=== PATIENT | female | born 1975 | race Caucasian/White ===

== ENCOUNTER → 2020-07-16 08:25 | Outpatient (CLI) | payer BC, SELFPAY ==
--- NOTE | ~2020-07-16 | MM_ITS ---
EXAMINATION: MM screening dorita BI w debby HISTORY: Screening TECHNIQUE: Craniocaudal and mediolateral oblique 3-D tomosynthesis images were obtained and synthetic 2-D images were generated. CAD analysis was submitted and interpreted. COMPARISON: No prior mammogram is available for comparison at this institution. BREAST PARENCHYMAL COMPOSITION: The breasts are heterogeneously dense, which may obscure small masses . FINDINGS: There is no evidence of suspicious mass, calcification, or architectural distortion to sugg est malignancy in either breast. There has been no suspicious interval change. IMPRESSION: 1. No mammographic evidence of malignancy. 2. Recommend routine screening mammography in one year. BI-RADS Category 1: Negative Reviewed, dictated and finalized at location A.
== END ==
PROVIDERS: PCP Internal Medicine; Visit Provider Student in an Organized Health Care Education/Training Program
DX: Z12.31 Encounter for screening mammogram for malignant neoplasm of breast (principal)
CPT/HCPCS: 77063; 77067

== ENCOUNTER → 2021-09-08 08:49 | Outpatient (CLI) | payer BC, SELFPAY ==
[2021-09-08 15:55] LABS: SARS-CoV-2 RNA PCR Positive
== END ==
PROVIDERS: PCP Internal Medicine; Visit Provider Physician Assistant
DX: U07.1 COVID-19 (principal)
CPT/HCPCS: C9803; U0003; U0005

== ENCOUNTER → 2021-11-02 16:33 | Outpatient (CLI) | payer BC, SELFPAY ==
--- NOTE | ~2021-11-02 | MM_ITS ---
EXAMINATION: MM screening dorita BI w debby HISTORY: Screening TECHNIQUE: Craniocaudal and mediolateral oblique 3-D tomosynthesis images were obtained and synthetic 2-D images were generated. CAD analysis was submitted and interpreted. COMPARISON: 07/16/2020 BREAST PARENCHYMAL COMPOSITION: The breasts are heterogenously dense, which may obscure small masses FINDINGS: There is no evidence of suspicious mass, calcification, or architectural distortion to sugg est malignancy in either breast. There has been no suspicious interval change. IMPRESSION: 1. No mammographic evidence of malignancy. 2. Recommend routine screening mammography in one year. BI-RADS Category 1: Negative Reviewed, dictated and finalized at location A.
== END ==
PROVIDERS: PCP Internal Medicine; Visit Provider Student in an Organized Health Care Education/Training Program
DX: Z12.31 Encounter for screening mammogram for malignant neoplasm of breast (principal)
CPT/HCPCS: 77063; 77067

== ENCOUNTER → 2023-01-24 16:20 | Outpatient (CLI) | payer OTHER, SELFPAY ==
--- NOTE | ~2023-01-24 | MM_ITS ---
EXAMINATION: MM screening dorita BI w debby HISTORY: Screening TECHNIQUE: Craniocaudal and mediolateral oblique 3-D tomosynthesis images were obtained and synthetic 2-D images were generated. CAD analysis was submitted and interpreted. COMPARISON: Comparison to multiple prior studies sequentially, with oldest reviewed study dated 07/16. BREAST PARENCHYMAL COMPOSITION: The breasts are heterogeneously dense, which may obscure small masses FINDINGS: There are developing asymmetries in the upper outer quadrant of the left breast, middle thi rd. The right breast is stable without evidence for malignancy. IMPRESSION: 1. Developing left breast asymmetries. 2. Additional mammographic views and possible breast ultrasound are recommended. BI-RADS Category 0: Incomplete: Needs additional imaging evaluation. Reviewed, dictated and finalized at location A. IMPRESSION: 1. Developing left breast asymmetries. 2. Additional mammographic views and possible breast ultrasound are recommended . BI-RADS Category 0: Incomplete: Needs additional imaging evaluation.
== END ==
PROVIDERS: PCP Internal Medicine; Visit Provider Registered Nurse
DX: Z12.31 Encounter for screening mammogram for malignant neoplasm of breast (principal); R92.8 Other abnormal and inconclusive findings on diagnostic imaging of breast
CPT/HCPCS: 77063; 77067

== ENCOUNTER → 2023-02-15 08:18 | Outpatient (CLI) | payer OTHER, SELFPAY ==
--- NOTE | ~2023-02-15 | MMUS_ITS ---
EXAMINATION: MM diagnostic dorita LT w debby, US breast LT limited HISTORY: Developing left mammographic asymmetry is reported in the upper outer quadrant of the left b reast, middle third on 01/24/2023 screening mammogram TECHNIQUE: Additional 3-D tomosynthesis images of the left breast were performed and synthetic 2-D im ages were generated. CAD analysis was submitted and interpreted. High resolution upper outer and lowe r-outer quadrant left breast ultrasound was performed. COMPARISON: 01/24/2023 bilateral screening mammogram FINDINGS: MAMMOGRAPHIC FINDINGS: No suspicious reproducible mass, architectural distortion, malignant calcification, skin thickening o r retraction is detected. ULTRASOUND: No suspicious mass or shadowing, cyst or other sylvian sonographic abnormality of the upper outer or lower outer quadrants left breast is detected. IMPRESSION: 1. No mammographic or sonographic evidence of malignancy 2. Routine annual mammographic screening is recommended BI-RADS Category 1: Negative Reviewed, dictated and finalized at location A. IMPRESSION: 1. No mammographic or sonographic evidence of malignancy 2. Routine annual mammographic screening is recommended BI-RADS Category 1: Negative
== END ==
PROVIDERS: PCP Internal Medicine; Visit Provider Registered Nurse
DX: R92.8 Other abnormal and inconclusive findings on diagnostic imaging of breast (principal)
CPT/HCPCS: 76642; 77061; 77065; G0279

== ENCOUNTER 2024-01-28 16:26 | Outpatient (CLI) | payer OTHER, SELFPAY ==
--- NOTE | ~2024-01-28 | MM_ITS ---
EXAMINATION: MM screening dorita BI w debby HISTORY: Screening TECHNIQUE: Craniocaudal and mediolateral oblique 3-D tomosynthesis images were obtained and synthetic 2-D images were generated. CAD analysis was submitted and interpreted. COMPARISON: Comparison to multiple prior studies sequentially, with oldest reviewed study dated 07/16. BREAST PARENCHYMAL COMPOSITION: Dense: The breasts are heterogeneously dense, which may obscure small masses FINDINGS: There is no evidence of suspicious mass, calcification, or architectural distortion to sugg est malignancy in either breast. There has been no suspicious interval change. IMPRESSION: 1. No mammographic evidence of malignancy. 2. Recommend routine screening mammography in one year. BI-RADS Category 1: Negative Reviewed, dictated and finalized at location B.
== END 2024-01-28 16:27 | disposition home or self-care (01) ==
PROVIDERS: PCP Internal Medicine; Visit Provider Nurse Practitioner Family
DX: Z12.31 Encounter for screening mammogram for malignant neoplasm of breast (principal)
CPT/HCPCS: 77063; 77067

== ENCOUNTER 2024-05-03 17:44 | Emergency (ER) | payer OTHER, SELFPAY ==
[2024-05-03 17:55] VITALS: BP 146/99; PULSE 84; RESP 16; TEMP 36.3; O2SAT 99
--- NOTE | 2024-05-03 18:09 | ED_ITS ---
HPI - URI/Sore Throat General Chief Complaint: Upper Respiratory Infection Stated Complaint: sorthroat Time Seen by Provider: 05/03/24 18:09 Source: patient, RN notes reviewed and old records reviewed Mode of arrival: ambulatory Limitations: no limitations History of Present Illness HPI Narrative: Patient presents accompanied by her 2 was just diagnosed with atypical pneumonia. She reports that she has had a sore throat for a couple of days. She reports associated body aches. She is unsure fever status. She has been taking [id number] medication for her symptoms with minimal relief. She states that other than the sore throat she does not feel all that bad. She denies any difficulty swallowing, although she does admit this makes her throat hurt worse. Related Data Allergies Allergy/AdvReac Type Severity Reaction Status Date / Time No Known Allergies Allergy Verified 05/03/24 17:47 Review of Systems Review of Systems: All systems reviewed & are unremarkable except as noted in HPI and below Constitutional: Constitutional: Reports no additional constitutional complaints and Reports body ache(s) ENT: Reports system reviewed and no additional complaints, except as documented and Reports sore throat Cardiovascular: Cardiovascular: Reports no additional cardiovascular complaints Respiratory: Respiratory: Reports no additional respiratory complaints Gastrointestinal: Gastrointestinal: Reports no additional gastrointestinal complaints [facility] Past Medical History Medical History (Reviewed 10/07/23 @ 15:08 by Tiffani Soler [facility]) History of DVT in adulthood Hypertension Family History Family History Father Family history of gout Blood clot in vein Diabetes mellitus Hypertension Hyperlipidemia Mother Hypertension Social History Social History Smoking status: Never smoker Second hand tobacco smoke exposure: No Alcohol intake: current Drinks per week: 14 Substance use: never Comments At the time of my signature, I reviewed and agree with the nursing past medical, surgical, social, and family history. There is no relevant family history pertinent to the patient complaint. Exam Const: General: cooperative, no acute distress, alert and awake Orientation/consciousness: oriented to person, oriented to place and oriented to time HENMT: Head: normal to inspection Ears: TM's normal bilaterally Mouth: Yes moist mucous membranes Resp: Effort & Inspection: normal respiratory effort and able to speak in complete sentences Auscultation: clear to auscultation bilaterally, no crackles, no rales, no rhonchi and no wheezes Cardio: Palpation: normal PMI Rate: regular rate Rhythm: regular rhythm Heart sounds: S1 normal heart sound present and S2 normal heart sound present Neuro: General: oriented to person, oriented to place and oriented to time Cranial nerves: Yes CN's II-XII intact bilaterally Psych: Appearance: grossly normal Thought process: Normal thought process present Insight: Good insight present (Psych) Judgement: Good judgement present (Psych) Course Course Level of Care: Express Care Visit Vital Signs Vital signs: Vital Signs Temperature 97.4 F L 05/03/24 17:55 Pulse Rate 84 05/03/24 17:55 Respiratory Rate 16 05/03/24 17:55 Blood Pressure 146/99 H 05/03/24 17:55 Pulse Oximetry 99 05/03/24 17:55 Oxygen Delivery Room Air 05/03/24 17:55 Temperature 97.4 F L 05/03/24 17:55 Pulse Rate 84 05/03/24 17:55 Respiratory Rate 16 05/03/24 17:55 Blood Pressure 146/99 H 05/03/24 17:55 Pulse Oximetry 99 05/03/24 17:55 Oxygen Delivery Room Air 05/03/24 17:55 Reviewed MDM - URI/Sore Throat MDM Narrative Medical decision making narrative: Negative rapid strep, culture pending. Patient's is here with her, he was just diagnosed with atypical pneumonia. Will treat patient as well per recommendations Discharge instructions reviewed with patient, as well as provided in writing per nursing staff. The instructions also include specific and strict return/GO TO THE ER as well as f/u information. All questions have been answered, and the patient deny any further questions with discharge and discharge plan. Some parts of this dictation were generated by voice recognition software and may contain typographical and/or grammatical inaccuracies. Differential Diagnosis Differential diagnosis: Likely upper respiratory infection, otitis media, sinusitis, viral infection, influenza and pharyngitis Medical Records Attestation: I reviewed the patient's medical records. Lab Data Attestation: I reviewed the patient's lab results. Discharge Plan Discharge Clinical Impression: Acute sore throat Patient Disposition: Home, Self-Care Condition: Stable Instructions: Antibiotic Form, Cold Symptoms (ED) Patient Language: Portuguese Prescriptions: New azithromycin 250 mg tablet See Rx Instructions .ROUTE .COMPLEX Qty: 6 0RF Rx Instructions: For 250 mg dose pack: take 500 mg today (day 1), then 250 mg for 4 days (days 2-5) No Action lisinopril 20 mg tablet 20 mg PO DAILY Qty: 90 2RF Follow-up/Referrals: Bryon,Jordan Dick DO [Primary Care Provider] - 2 Weeks Time of Disposition: 18:31
[2024-05-03 18:12] LABS: EDSTREPNEGPOS1 Negative (Negative)
== END 2024-05-03 18:33 | disposition home or self-care (01) ==
PROVIDERS: Emergency Provider Nurse Practitioner Family; PCP Internal Medicine
DX: J02.9 Acute pharyngitis, unspecified (principal); I10 Essential (primary) hypertension
CPT/HCPCS: 87081; 87880; 99213; G0463

== ENCOUNTER 2024-12-18 06:55 | Day surgery (SDC) | payer OTHER, SELFPAY ==
[2024-12-03 10:36] VITALS: BMI 24.2
--- NOTE | 2024-12-04 10:52 | PC.NURSE ---
Patient complained about worrying about nausea and vomiting while doing prep, order placed with directions per Dr. Solis for Ondansetron 4 mg tablets q6h prn for nausea and vomiting with prep.
--- OUTSIDE RECORDS SUMMARY | 2024-12-18 06:57 | XMS_ITS | Clinical Summary ---
Author Organization [facility] [address] Address [address] [place] [address] Care Team Providers Care Machine Stripper Name Role Phone Jordan Slater MD Primary Care Provider [phone] Allergies No known active allergies Medications XARELTO 20 mg tablet TK 1 T PO QD WITH THE EDGAR MEAL 4 09/30/2018 Active lisinopril (PRINIVIL,ZESTRI L) 10 mg tablet TK 1 T PO QD 3 11/26/2018 Active Active Problems No known active problems Surgical History Surgery Date Site/Laterality Comments FOOT SURGERY CRANIAL LESION RESECTION Medical History Medical History Date Comments Clotting disorder Deep vein thrombosis (HCC) Hypertension Inflammatory bowel disease Migraines Family History Medical History Relation Name Comments Alcohol abuse Father Blood Clot Father Gout Father Hypertension Father Alcohol abuse Mother Hypertension Mother Relation Name Status Comments Father Mother Social History Tobacco Use Types Packs/Day Years Used Date Smoking Tobacco: Never Smokeless Tobacco: Never Alcohol Use Standard Drinks/Week Comments Yes 0 (1 standard drink = 0.6 oz pur e alcohol) Frequently Personal Safety Answer Date Recorded Getting School Help Needed Not on file 07/19 Comments Unknown Sex and Gender Information Value Date Recorded Sex Assigned at Not on file 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 Gender Identity Not on file Sexual Orientation Not on file Obstetrics History Last Filed Vital Signs Vital Sign Reading Time Taken Comments Blood Pressure - - Pulse - - Temperature - - Respiratory Rate - - Oxygen Saturation - - Inhaled Oxygen Concentration - - Weight 68 kg (150 lb) 10/14/2018 9:08 AM CDT Height 167.6 cm (5' 6) 10/14/2018 9:08 AM CDT Body Mass Index 24.21 10/14/2018 9:08 AM CDT Plan of Treatment Not on file Insurance [facility] H[facility] Address: [address] [address] [place] [address] [facility] H[facility]/POS Care Teams Machine Stripper Relationship Specialty Start Date End Date Jordan Slater MD [address] [facility] [address] [place] [address] PCP - General Internal Medicine 04/10/18
--- OUTSIDE RECORDS SUMMARY | 2024-12-18 06:57 | XMS_ITS | Patient Health Record ---
Author Organization [facility] Address [address] [place], [place] [id number] Care Team Providers Care Back Tender Insulation Board Name Role Phone MITZI KAPADIA Unavailable [phone] Jordan Slater Unavailable Unavailable Reason For Referral No Information Plan Of Treatment No Information Insurance Providers Payer Name Payer Address Payer Phone Subscriber Number Group Number Insured Name Patient Relationship to Insured Coverage Start Date Coverage End Date [employer] [address] [place] [address] [id number] LOR CORTES Self - patient is the insured
[2024-12-18 10:13] VITALS: BP 136/90; PULSE 76; RESP 18; TEMP 36.5; O2SAT 100; BMI 23.5
[2024-12-18] MEDS: LACTATED RINGERS 1,000 ML 150 ML IV CONT (10:23)
--- NOTE | 2024-12-18 11:01 | WPDANESEPPF ---
Anes - Initial Pre Proc Eval Procedure: Operation Date: 12/18/24 11:30 Proposed Procedures p Diagnostic Colonoscopy - Byron Solis MD Date/Time: 12/18/24 11:01 Surgeon: Byron Solis MD Pre Op Diagnosis: Other fecal abnormalities Patient Data Age: 49 Gender: F Height: 1.68 m Weight: 66.1 kg Last Vital Signs Temp 97.7 F 12/18/24 10:13 Pulse 76 12/18/24 10:13 Resp 18 12/18/24 10:13 BP 136/90 12/18/24 10:13 Pulse Ox 100 12/18/24 10:13 O2 Del Method Room Air 12/18/24 10:13 Allergies Allergy/AdvReac Type Severity Reaction Status Date / Time No Known Allergies Allergy Verified 12/18/24 10:12 Home Medications ?Medication ?Instructions ?Recorded ?Confirmed ?Type lisinopril 20 mg tablet 20 mg PO DAILY #90 tabs 11/13/24 12/18/24 Rx spironolactone 25 mg tablet 25 mg PO DAILY #30 tabs 11/13/24 12/18/24 Rx (Aldactone) magnesium 200 mg tablet 200 mg PO DAILY 12/03/24 12/18/24 History multivitamin (Daily Multi-Vitamin 1 tablet PO DAILY 12/03/24 12/18/24 History tablet) ondansetron HCl 4 mg tablet 4 mg PO Q6H PRN nausea and 12/04/24 Rx vomiting #4 tabs Patient hx anesthesia problems: none Family hx anesthesia problems: none Results Review: All pre-operative results and documents have been reviewed as part of the pre-operative evaluation. [facility] Past Medical History Medical History BMI 24.0-24.9, adult Palpitation Other fatigue Essential hypertension Elevated blood pressure reading History of DVT in adulthood Hypertension Surgical History Surgical History Hx of colonoscopy Family History Family History Father Family history of gout Blood clot in vein Diabetes mellitus Hypertension Hyperlipidemia Mother Hypertension Sibling Hypertension Social History Social History Smoking status: Never smoker Second hand tobacco smoke exposure: No Alcohol intake: current Drinks per week: 14 Substance use: never Substance use type: does not use Do You Feel Safe in your Home?: Yes Lack of Transportation: No Lack of Food: Never True Current Housing: I Have Housing Concerned About Future Housing: No Difficulty Paying Gas/Electric Bills: No Difficulty Paying for Meds: No Currently Unemployed: No Education: Bachelor's Degree Difficulty w/ Childcare or Family Care: No Living arrangements: with family Additional living arrangements comments: Department of [employer] Occupation/Education: occupation Anes - Eval Final PreProcedure Day of Procedure 12/18/24 11:01 Patient weight: normal Lungs: normal air movement Airway: Mallampati scale class II Neurological: alert and oriented Last oral intake: >/= 8 hours ASA classification: II Emergent: no Anesthetic plan: proceed Anesthesia type and monitoring: general GIVS and standard monitoring Results Review: All pre-operative results and documents have been reviewed as part of the pre-operative evaluation. HTN, hx of DVT after foot surgery in the past. Active, no cp or sob w activity. Informed Consent: The patient's anesthetic plan and its attendant risks and benefits were discussed with the patient/family/POA. Questions were solicited and answers provided to the satisfaction of the patient/family/POA.
--- NOTE | 2024-12-18 11:31 | P.HP_ITS ---
H&P: HPI History of Present Illness Date/Time: 12/18/24 11:31 Chief Complaint: Positive Cologuard test Narrative: This is the patient's 2nd colonoscopy after more than 5 years. She was recently found to have a Cologuard positive test.. There are no GI symptoms and there is no family history of colorectal cancer. Review of Systems Review of Systems: All systems reviewed & are unremarkable except as noted in HPI and below PMFSH Past Medical History Medical History BMI 24.0-24.9, adult Palpitation Other fatigue Essential hypertension Elevated blood pressure reading History of DVT in adulthood Hypertension Surgical History Surgical History Hx of colonoscopy Family History Family History Father Family history of gout Blood clot in vein Diabetes mellitus Hypertension Hyperlipidemia Mother Hypertension Sibling Hypertension Social History Social History Smoking status: Never smoker Second hand tobacco smoke exposure: No Alcohol intake: current Drinks per week: 14 Substance use: never Substance use type: does not use Do You Feel Safe in your Home?: Yes Lack of Transportation: No Lack of Food: Never True Current Housing: I Have Housing Concerned About Future Housing: No Difficulty Paying Gas/Electric Bills: No Difficulty Paying for Meds: No Currently Unemployed: No Education: Bachelor's Degree Difficulty w/ Childcare or Family Care: No Living arrangements: with family Additional living arrangements comments: [email or web address] of [email or web address] Occupation/Education: occupation Meds Home Medications and Allergies Home Medications ?Medication ?Instructions ?Recorded ?Confirmed ?Type lisinopril 20 mg tablet 20 mg PO DAILY #90 tabs 11/13/24 12/18/24 Rx spironolactone 25 mg tablet 25 mg PO DAILY #30 tabs 11/13/24 12/18/24 Rx (Aldactone) magnesium 200 mg tablet 200 mg PO DAILY 12/03/24 12/18/24 History multivitamin (Daily Multi-Vitamin 1 tablet PO DAILY 12/03/24 12/18/24 History tablet) ondansetron HCl 4 mg tablet 4 mg PO Q6H PRN nausea and 12/04/24 Rx vomiting #4 tabs Allergies Allergy/AdvReac Type Severity Reaction Status Date / Time No Known Allergies Allergy Verified 12/18/24 10:12 Vital Signs Vital Signs - 24 hr 12/18/24 10:13 Temperature 97.7 F Pulse Rate 76 Respiratory Rate 18 Blood Pressure 136/90 Pulse Oximetry 100 Oxygen Delivery Room Air Exam Const: General: cooperative and healthy appearing Resp: Effort & Inspection: normal respiratory effort and able to speak in complete sentences Auscultation: clear to auscultation bilaterally Cardio: Rate: regular rate Rhythm: regular rhythm GI: Inspection: normal to inspection GI Palp: No No hepatosplenomegaly present Auscultation: normal bowel sounds Rectal Exam: deferred Skin: General skin exam: normal color Psych: Appearance: grossly normal Mental Status: mental status grossly normal Assessment and Plan Assessment and plan (1) Positive colorectal cancer screening using Cologuard test: Code(s): R19.5 - Other fecal abnormalities Status: Acute Assessment and Plan: The patient is deemed a good candidate for the procedure. Consent signed. Will proceed.
[2024-12-18 11:57] VITALS: BP 124/84; PULSE 85; RESP 18; O2SAT 100
[2024-12-18 12:07] VITALS: BP 126/89; PULSE 75; RESP 19; O2SAT 100
[2024-12-18 12:17] VITALS: BP 125/90; PULSE 63; RESP 12; O2SAT 100
== END 2024-12-18 12:25 | disposition home or self-care (01) ==
PROVIDERS: PCP Internal Medicine; Referring Provider Internal Medicine; Visit Provider Internal Medicine Gastroenterology
PROC: 0DJD8ZZ Inspection of Lower Intestinal Tract, Via Natural or Artificial Opening Endoscopic (ICD-10-PCS; CPT 45378; principal; 2024-12-18 11:30)
DX: R19.5 Other fecal abnormalities (principal); I10 Essential (primary) hypertension; R00.2 Palpitations; R53.83 Other fatigue; Z98.890 Other specified postprocedural states; Z86.718 Personal history of other venous thrombosis and embolism
CPT/HCPCS: 45378; J2003; J2704; J7120

== ENCOUNTER 2025-01-29 09:41 | Outpatient (CLI) | payer OTHER, SELFPAY ==
--- NOTE | ~2025-01-29 | MM_ITS ---
EXAMINATION: MM screening dorita BI w debby HISTORY: Screening TECHNIQUE: Craniocaudal and mediolateral oblique 3-D tomosynthesis images were obtained and synthetic 2-D images were generated. CAD analysis was submitted and interpreted. COMPARISON: Comparison to multiple prior studies sequentially, with oldest reviewed study dated , 07/16/2020 BREAST PARENCHYMAL COMPOSITION: The breasts are heterogeneously dense, which may obscure small masses. FINDINGS: There is no evidence of suspicious mass, calcification, or architectural distortion to suggest malignancy in either breast. IMPRESSION: 1. No mammographic evidence of malignancy. 2. Recommend routine screening mammography in one year. BI-RADS Category 1: Negative Reviewed, dictated and finalized at location B.
== END 2025-01-29 09:42 | disposition home or self-care (01) ==
LOC: MICIMG 09:43
PROVIDERS: PCP Internal Medicine; Visit Provider Nurse Practitioner Family
DX: Z12.31 Encounter for screening mammogram for malignant neoplasm of breast (principal)
CPT/HCPCS: 77063; 77067